=== PATIENT | female | born 1955 | race Caucasian/White ===

== ENCOUNTER 2023-02-23 11:57 | Day surgery (SDC) | payer MEDICARE, MEDICAID ==
[2023-02-19 13:03] LABS: BASOPHILS # (AUTO) 0.1 X10'3 (0-0.2); BASOPHILS % (AUTO) 0.7 % (0-1); EOSINOPHILS # (AUTO) 0.1 X10'3 (0-0.9); EOSINOPHILS % (AUTO) 1.2 % (0-6); HEMATOCRIT 46.1 % (35.0-45.0); HEMOGLOBIN 15.5 g/dl (12.0-16.0); LYMPHOCYTES # (AUTO) 1.8 X10'3 (1.1-4.8); LYMPHOCYTES % (AUTO) 23.2 % (21-51); MEAN CORPUSCULAR HEMOGLOBIN 30.4 PG (27.0-31.0); MEAN CORPUSCULAR HGB CONC 33.5 g/dL (33.0-36.5); MEAN CORPUSCULAR VOLUME 90.7 FL (78-98); MEAN PLATELET VOLUME 8.3 FL (7.4-10.4); MONOCYTES # (AUTO) 0.5 X10'3 (0-0.9); MONOCYTES % (AUTO) 7.1 % (2-12); NEUTROPHILS # (AUTO) 5.2 X10'3 (1.8-7.7); NEUTROPHILS % (AUTO) 67.8 % (42-75); PLATELET COUNT 231 X10'3 (140-440); RED BLOOD COUNT 5.09 X10'6 (4.20-5.60); RED CELL DISTRIBUTION WIDTH 13.5 % (11.5-14.5); WHITE BLOOD COUNT 7.7 X10'3 (4.5-11.0)
[2023-02-19 13:10] LABS: ALBUMIN 3.9 G/DL (3.4-5.0); ANION GAP 10 (8-16); BLOOD UREA NITROGEN 7 MG/DL (7-18); BUN/CREATININE RATIO 9.5 (10.0-20.0); CALCIUM 9.3 MG/DL (8.5-10.1); CHLORIDE 101 MMOL/L (99-107); CREATININE 0.74 MG/DL (0.40-0.90); GLUCOSE 141 MG/DL (70-104); POTASSIUM 3.6 MMOL/L (3.5-5.1); SODIUM 139 MMOL/L (135-145); TOTAL CARBON DIOXIDE 27.9 MMOL/L (24-32); eGFR 78 ML/MIN
[2023-02-19 13:14] LABS: APTT 32 SECONDS (22-32)
[2023-02-23] VITALS (12 sets, daily range): BP systolic 122–169; BP diastolic 79–118
[~2023-02-23] VITALS: Ht 170.2 cm; Wt 93.5 kg
[2023-02-23] MEDS ORDERED: fentaNYL/PF 50MCG/1 ML 2ML syringe IV ONE (12:25)
[2023-02-23] MEDS ORDERED: normal saline 1000ml 1,000 ML IV SCH (12:25)
[2023-02-23] MEDS ORDERED: MIDAZolam 1mg/ml 10ml vial IV ONE (12:25)
[2023-02-23] MEDS ORDERED: DILT240C78 PO (12:27)
[2023-02-23] MEDS ORDERED: AMLO1CAP77 PO (12:27)
[2023-02-23] MEDS ORDERED: APIX5TAB3 PO (12:27)
[2023-02-23] MEDS ORDERED: SOTA80TA73 PO (12:27)
[2023-02-23] MEDS ORDERED: MULT-1085 PO (12:28)
== END 2023-02-23 14:50 | disposition home or self-care (01) ==
LOC: SSTAY O 11:57
PROVIDERS: ATTEND Student in an Organized Health Care Education/Training Program
DX: I48.91 Unspecified atrial fibrillation (principal); I10 Essential (primary) hypertension; F17.290 Nicotine dependence, other tobacco product, uncomplicated; Z79.899 Other long term (current) drug therapy; Z79.01 Long term (current) use of anticoagulants
CPT/HCPCS: 36415; 80048; 85025; 85610; 85730; 92960; J2250; J3010; J7030; A4620